=== PATIENT | female | born 1995 | race Caucasian/White ===

== ENCOUNTER 2023-11-06 21:07 | Emergency (ER) | payer MEDICAID ==
[~2023-11-06] VITALS: Ht 165.1 cm; Wt 85.7 kg
[2023-11-06 21:24] VITALS: BP_SYST 112; PULSE 78; RESP 20; TEMP 98; O2SAT 98
[2023-11-06] MEDS ORDERED: BACITRACIN 1 GM OINT TP ONE (23:00)
[2023-11-06] MEDS ORDERED: CEPH-548 PO (23:06)
[2023-11-06] MEDS ORDERED: NAPR-1172 PO (23:06)
[2023-11-06] MEDS: LIDOCAINE 1% 10 MG/ML, 20 ML MDV INJ ONE (23:09)
[2023-11-06 23:11] VITALS: BP_SYST 120; PULSE 74; RESP 16; TEMP 97.7; O2SAT 98
== END 2023-11-06 23:11 | disposition home or self-care (01) ==
LOC: SED 21:07
DX: L60.0 Ingrowing nail (principal); Z79.899 Other long term (current) drug therapy
CPT/HCPCS: 99284